=== PATIENT | male | born 1985 | race African-American/Black ===

== ENCOUNTER 2018-05-17 17:10 | Emergency (ER) | payer OTHER ==
[~2018-05-17] VITALS: Ht 188 cm; Wt 106.8 kg
[2018-05-17 17:36] LABS: APPEARANCE,URINE CLEAR (CLEAR); BILIRUBIN,URINE NEGATIVE (NEGATIVE); GLUCOSE, URINE (UA) NEGATIVE (NEGATIVE); KETONES,URINE NEGATIVE (NEGATIVE); LEUKOCYTE ESTERASE ,URINE NEGATIVE (NEGATIVE); NITRATE,URINE NEGATIVE (NEGATIVE); OCCULT BLOOD,URINE NEGATIVE (NEGATIVE); PROTEIN,URINE NEGATIVE (NEGATIVE); UROBILINOGEN,URINE 0.2 mg/dL (<=1.0)
[2018-05-17] MEDS ORDERED: LIDOCAINE HCL/PF 1% 2 ML VIAL IM ONE (17:45)
[2018-05-17] MEDS ORDERED: IBUPROFEN 800 MG TABLET PO ONE (17:45)
[2018-05-17] MEDS ORDERED: AZITHROMYCIN 250 MG TABLET PO ONE (17:45)
[2018-05-17] MEDS ORDERED: CefTRIAXone SODIUM 1 GM/VIAL IM ONE (17:45)
[2018-05-17 18:15] VITALS: BP 145/82
== END 2018-05-17 18:20 | disposition home or self-care (01) ==
LOC: EMS 17:11
DX: A64 Unspecified sexually transmitted disease (principal); R30.0 Dysuria; F17.210 Nicotine dependence, cigarettes, uncomplicated; F12.10 Cannabis abuse, uncomplicated
CPT/HCPCS: 81003; 96372; 99283; 99406; J0696; J3490